=== PATIENT | female | born 1985 | race Caucasian/White ===

== ENCOUNTER → 2018-06-28 | Outpatient (CLI) | payer BC ==
[~2018-06-28] MED LIST: ASCO500T8 PO; LEVO75TA5 PO; MULT-516 PO; [UNRECOGNIZED DRUG - CODE] PO
[2018-06-28 10:55] LABS: BASOPHILS # (AUTO) 0.03 x10^3/uL (0-0.1); BASOPHILS % (AUTO) 0 % (0-1); EOSINOPHILS # (AUTO) 0.06 x10^3/uL (0-0.4); EOSINOPHILS % (AUTO) 1 % (1-7); LYMPHOCYTES # (AUTO) 2.18 x10^3/uL (1-3.4); LYMPHOCYTES % (AUTO) 32 % (22-44); MD NO; MEAN CORPUSCULAR HEMOGLOBIN 29.6 pg (27.0-34.8); MEAN CORPUSCULAR HGB CONC 34.1 g/dL (32.4-35.8); MEAN PLATELET VOLUME 8.7 fL (7.4-10.4); MONOCYTES % (AUTO) 6 % (2-9); NEUTROPHILS # (AUTO) 4.13 x10^3/uL (1.8-6.8); NEUTROPHILS % (AUTO) 61 % (42-75); PLATELET COUNT 294 x10^3/uL (130-400); RED BLOOD COUNT 4.49 x10^6/uL (3.82-5.3); RED CELL DISTRIBUTION WIDTH 14.8 % (9.6-15.2)
[2018-06-28 11:04] LABS: ALANINE AMINOTRANSFERASE 23 U/L (12-78); ALBUMIN 4.2 g/dL (3.4-5.0); ANION GAP 5 mmol/L (5-15); CALCIUM 9.2 mg/dL (8.5-10.1); CHLORIDE 112 mmol/L (98-107); CREATININE 1.09 mg/dL (0.55-1.02)
[2018-06-28 11:08] LABS: ALKALINE PHOSPHATASE 94 U/L (45-117); BILIRUBIN,TOTAL 0.8 mg/dL (0.2-1.0); TOTAL PROTEIN 8.2 g/dL (6.4-8.2)
== END | disposition home or self-care (01) ==
LOC: STAR 09:42
PROVIDERS: ATTEND Obstetrics & Gynecology
DX: Z01.818 Encounter for other preprocedural examination (principal); N94.6 Dysmenorrhea, unspecified; N92.6 Irregular menstruation, unspecified; E03.9 Hypothyroidism, unspecified
CPT/HCPCS: 36415; 80053; 84703; 85025

== ENCOUNTER 2018-07-03 05:41 | Day surgery (SDC) | payer BC ==
[~2018-07-03] VITALS: Ht 167.6 cm; Wt 83.2 kg
[2018-07-03] MEDS ORDERED: APREPITANT 40 MG CAPSULE PO STA (06:01)
[2018-07-03] MEDS ORDERED: LACTATED RINGERS 1,000 ML IV SCH (06:14)
[2018-07-03 06:18] VITALS: BP 121/81
[2018-07-03 06:41] LABS: HCG UR SG 1.002 (1.003-1.030)
[2018-07-03] MEDS ORDERED: FLUORESCEIN SODIUM 500 MG/5 ML ONE (06:56)
[2018-07-03] MEDS ORDERED: BUPIVACAINE/PF 0.25% ONE (06:56)
[2018-07-03] MEDS ORDERED: EPINEPHRINE 1 MG/ML, 1ML ONE (06:56)
[2018-07-03] MEDS ORDERED: PROPOFOL 10 MG/ML, 20ML ONE ×2 (07:07→08:58)
[2018-07-03] MEDS ORDERED: DEXAMETHASONE 4 MG/ML, 1ML ONE (07:07)
[2018-07-03] MEDS ORDERED: LIDOCAINE-MPF 2% ,5ML ONE (07:07)
[2018-07-03] MEDS ORDERED: ROCURONIUM 10MG/ML,5ML ONE ×2 (07:07→08:59)
[2018-07-03] MEDS ORDERED: CEFAZOLIN 1,000 MG ONE ×2 (07:07)
[2018-07-03] MEDS ORDERED: ONDANSETRON 2MG/ML, 2ML ONE (07:07)
[2018-07-03] MEDS ORDERED: PHENYLEPHRINE 10 MG/ML ONE (07:13)
[2018-07-03] MEDS ORDERED: FENTANYL PF 100 MCG/2ML ONE ×3 (07:24→09:42)
[2018-07-03] MEDS ORDERED: MIDAZOLAM 1 MG/ML, 2ML ONE (07:25)
[2018-07-03] MEDS ORDERED: BUPIVACAINE/PF 0.25% INFIL ONE (08:13)
[2018-07-03] MEDS ORDERED: SUGAMMADEX 200 MG/2 ML IVPush ONE (08:22)
[2018-07-03] MEDS ORDERED: KETOROLAC 30 MG/1 ML IM PRN ×2 (08:30)
[2018-07-03] MEDS ORDERED: KETOROLAC 30 MG/1 ML IV PRN ×2 (08:30)
[2018-07-03] MEDS ORDERED: MEPERIDINE/PF 25MG/0.5ML IVPush PRN (08:30)
[2018-07-03] MEDS ORDERED: HYDROcodone/APAP 7.5-325MG/15ML UDC PO PRN (08:30)
[2018-07-03] MEDS ORDERED: MORPHINE SULFATE 4 MG/ML, 1ML IVPush PRN (08:30)
[2018-07-03] MEDS ORDERED: ACETAMINOPHEN 325 MG TABLET PO PRN (08:30)
[2018-07-03] MEDS ORDERED: OXYcodone 5 MG/5 ML ORAL.SOL UDC ONE ×2 (09:39→09:55)
[2018-07-03] MEDS: OXYcodone 5 MG/5 ML ORAL.SOL UDC PO PRN ×2 (09:40→09:57)
[2018-07-03] MEDS: FENTANYL PF 100 MCG/2ML IV PRN ×3 (09:40→10:04)
[2018-07-03] MEDS ORDERED: KETOROLAC 30 MG/1 ML ONE (09:54)
[2018-07-03] MEDS: HYDROmorphone 2 MG/ML, 1ML IVPush PRN ×2 (10:04→10:11)
[2018-07-03] MEDS ORDERED: HYDROmorphone 2 MG/ML, 1ML ONE (10:05)
[2018-07-03 15:37] LABS: MD YES; MEAN CORPUSCULAR HEMOGLOBIN 29.8 pg (27.0-34.8); MEAN CORPUSCULAR VOLUME 87.6 fL (80-100); MEAN PLATELET VOLUME 8.6 fL (7.4-10.4); PLATELET COUNT 235 x10^3/uL (130-400); RED BLOOD COUNT 4.02 x10^6/uL (3.82-5.3); RED CELL DISTRIBUTION WIDTH 14.9 % (9.6-15.2)
[2018-07-03] MEDS ORDERED: OXYcodone/APAP 5/325MG TABLET PO PRN (16:00)
[2018-07-03] MEDS ORDERED: KETOROLAC 30 MG/1 ML IVPush PRN (16:00)
[2018-07-03 16:47] LABS: BAND#(MANUAL) 0.42 x10^3/uL; BANDS%(MANUAL) 3 % (0-7); LYMPH#(MANUAL) 0.42 x10^3/uL (1-3.4); LYMPHS% (MANUAL) 3 % (22-44); MONOS#(MANUAL) 0.14 x10^3/uL (0.3-2.7); MONOS% (MANUAL) 1 % (2-9); SEG#(MANUAL) 12.93 x10^3/uL (1.8-6.8); SEGS% (MANUAL) 93 % (42-75)
[2018-07-03 16:49] LABS: <PLATELET ESTIMATE> ADEQUATE; <PLT MORPHOLOGY> NORMAL PLT MORPH; <RBC MORPHOLOGY> NORMAL
[2018-07-03] MEDS ORDERED: morphine SULFATE 10 MG/ML, 1ML IVPush PRN (17:00)
== END 2018-07-03 18:00 | disposition home or self-care (01) ==
LOC: OUT 05:41
PROVIDERS: ATTEND Obstetrics & Gynecology
DX: D25.0 Submucous leiomyoma of uterus (principal); N88.8 Other specified noninflammatory disorders of cervix uteri; N92.0 Excessive and frequent menstruation with regular cycle; N94.6 Dysmenorrhea, unspecified; E03.9 Hypothyroidism, unspecified; F41.9 Anxiety disorder, unspecified
CPT/HCPCS: 36415; 58552; 81025; 85025; 86850; 86900; 88307; J0171; J0690; J1100; J1170; J1885; J2250; J2370; J2405; J2704; J3010; J3490; J7120; J8501